=== PATIENT | female | born 1945 | race Caucasian/White ===

== ENCOUNTER 2022-12-18 17:05 | Emergency (ER) | payer MEDICARE, MEDICAID, SELFPAY ==
--- NOTE | ~2022-12-18 | CT_ITS ---
EXAMINATION: CT ABDOMEN AND PELVIS WITH CONTRAST CLINICAL INFORMATION: Epigastric pain with weight loss. COMPARISON: None. TECHNIQUE: Multidetector CT volumetric acquisition of the abdomen and pelvis was performed after the administration of 85 mL of intravenous Omnipaque 350. The data set was reformatted in the sagittal and coronal planes and reviewed on an independent workstation. This CT examination was performed using dose optimization techniques as appropriate, variously including the following: *Automated exposure control *Adjustment of mA and/or kV according to patient size (this includes techniques or standardized protocols for targeted exams where dose is matched to indication/reason for exam; i.e. extremities or head) *Use of iterative reconstruction technique DLP: 453.95 mGy-cm. FINDINGS: LOWER CHEST: Mild dependent atelectatic changes noted in the lung bases bilaterally. LIVER, GALLBLADDER, BILIARY TREE: Liver normal size and attenuation. No focal cystic or solid mass. Hepatic and portal veins patent. Gallbladder surgically absent with multiple rolando seen in the gallbladder fossa. Minimal central intrahepatic ductal prominence is seen. Common bile duct is normal in caliber, measuring 0.3 cm in maximal diameter.. PANCREAS: Normal. No ductal dilatation, mass, or surrounding stranding. SPLEEN: Normal size and appearance. Splenic vein patent. ADRENAL GLANDS AND KIDNEYS: Adrenal glands normal. Kidneys bilaterally symmetric in size and function. No focal mass, hydronephrosis, nephrolithiasis or perinephric stranding. URETERS AND BLADDER: Ureters decompressed and within normal limits. Bladder partially distended and within normal limits. PELVIC ORGANS: Unremarkable. GASTROINTESTINAL TRACT: Small hiatal hernia noted. Mild sigmoid and distal descending colonic diverticulosis with no evidence of acute diverticulitis. Mild diffuse submucosal hypodensity seen in the right colon, perhaps sequelae of previous colitis. No evidence of acute inflammation.. Small and large bowel loops decompressed. Appendix in right lower quadrant normal. ABDOMINAL WALL: There is a tiny fat-containing umbilical hernia. LYMPHOVASCULAR STRUCTURES: Abdominal aorta normal in caliber. No periaortic collections. No abdominal or pelvic adenopathy or free fluid collection. BONES: Diffuse osteopenia. Minimal vertebral spondylosis in the lower thoracic and in mid and lower lumbar spine. Mild degenerative disc disease at T11-T12, L3-L4 and L5-S1 with mild disc space narrowing and vacuum disc phenomenon and spurring seen. Mild facet arthropathy at the lumbosacral junction. CT/CT abdomen pelvis w IV con IMPRESSION: 1. No acute intra-abdominal or pelvic findings seen. 2. Mild colonic diverticulosis with no evidence of acute diverticulitis. 3. Status post cholecystectomy with minimal prominence of the central intrahepatic ducts. Common bile duct is normal in caliber. 4. Small hiatal hernia. 5. Tiny fat-containing umbilical hernia.
[2022-12-18 17:19] VITALS: BP 152/79; PULSE 74; RESP 18; TEMP 36.6; O2SAT 98; BMI 23.8
--- NOTE | 2022-12-18 17:21 | ED.GENADULT ---
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 This has not been associated with any fever, chills nor has been associated with vomiting, diarrhea, or constipation but patient does report some associated nausea. She denies any urinary pain or burning but does report frequency and she is status post cholecystectomy she states her last colonoscopy was in approximately 2011 <Corry Vanegas MD - Last Filed: 12/18/22 22:30> Related Data Home medications: Previous Rx's Medication Instructions Recorded cefdinir 300 mg capsule 300 mg PO BID 7 days #14 caps 12/18/22 omeprazole 40 mg capsule,delayed 40 mg PO DAILY #30 caps 12/18/22 release <COLLETTE García - Last Filed: 12/18/22 17:26> Allergies/adverse reactions: Allergies Allergy/AdvReac Type Severity Reaction Status Date / Time No Known Allergies Allergy Verified 12/18/22 17:23 <COLLETTE García - Last Filed: 12/18/22 17:26> Review of Systems Review of Systems: Pertinent positives and negatives as stated in HPI <Corry Vanegas MD - Last Filed: 12/18/22 22:30> PMFSH Past Medical History Source: nursing notes reviewed <Corry Vanegas MD - Last Filed: 12/18/22 22:30> Social History Social History: Social History Alcohol intake: never Smoked in Last 30 Days: No Use of substances other than those prescribed or required for medical reasons: No Advance Directives: No Advance Directives Information Provided: No <COLLETTE García - Last Filed: 12/18/22 17:26> Physical Exam ED Vital Signs: Vital Signs - 24 hr 12/18/22 17:19 12/18/22 19:57 Temperature 97.8 F 98.1 F Pulse Rate 74 80 Respiratory Rate 18 16 Blood Pressure 152/79 H 165/83 H Pulse Oximetry 98 98 Oxygen Delivery Method Room Air Room Air BMI result Body Mass Index 23.8 <COLLETTE García - Last Filed: 12/18/22 17:26> Vital Signs - 24 hr 12/18/22 17:19 12/18/22 19:57 Temperature 97.8 F 98.1 F Pulse Rate 74 80 Respiratory Rate 18 16 Blood Pressure 152/79 H 165/83 H Pulse Oximetry 98 98 Oxygen Delivery Method Room Air Room Air BMI result Body Mass Index 23.8 VITAL SIGNS: Reviewed. GENERAL: Well developed, well nourished, in no acute distress. HEAD: Normocephalic/atraumatic EYES: PERRLA, EOMI EARS: Ext canals without abnormality, TMs non-bulging and non-erythematous NOSE: Nares patent bilateral OROPHARYNX: no oral lesions noted, posterior pharynx clear and non-erythematous without noted tonsillar enlargement/erythema/exudates NECK: Supple, no adenopathy LUNGS: Normal breath sounds. No adventitious sounds or accessory muscle use. SpO2<98> CARDIOVASCULAR: Regular rate and rhythm without noted murmurs, no JVD or lower extremity edema. ABDOMEN: Soft, non-tender, non-distended with bowel sounds. MUSCULOSKELETAL: No tenderness, deformities, or effusions noted on gross inspection. EXTREMITIES: No cyanosis, clubbing or edema. SKIN: Inspection of the skin reveals no rashes NEUROLOGIC: Alert and oriented x 4. Strength and sensation to light touch were grossly intact x 4. <Corry Vanegas MD - Last Filed: 12/18/22 22:30> Course Course Course Narrative: RME - 77 yo female with history of gastritis presents to the ER for evaluation of poor PO intake for the last 6-8 weeks due to epigastric pain with eating. She has ongoing nausea and headaches. She has not been taking the medication for her gastritis. She feels weak. Family reports intermittent dizziness episodes and new unsteady gait. Family brought her here from [place] for evaluation. Plan: start w/ lab workup <COLLETTE García - Last Filed: 12/18/22 17:26> Medications Administered Discontinued Medications Generic Name Dose Route Start Last Admin Trade Name Freq PRN Reason Stop Dose Admin Sodium Chloride 500 mls @ 999 mls/hr 12/18/22 20:45 12/18/22 21:51 Ns IV 12/18/22 21:15 999 mls/hr .Q31M ASH Administration Sodium Chloride 500 mls @ 999 mls/hr 12/18/22 21:45 12/18/22 21:52 Ns IV 12/18/22 22:15 999 mls/hr .Q31M ASH Administration Iohexol 100 ml 12/18/22 21:32 12/18/22 21:33 Iohexol 350 Mg/Ml 100 Ml Infus..Btl IV 12/18/22 21:33 85 ml ONCE ONE Administration <COLLETTE García - Last Filed: 12/18/22 17:26> Medications Administered Discontinued Medications Generic Name Dose Route Start Last Admin Trade Name Freq PRN Reason Stop Dose Admin Sodium Chloride 500 mls @ 999 mls/hr 12/18/22 20:45 12/18/22 21:51 Ns IV 12/18/22 21:15 999 mls/hr .Q31M ASH Administration Sodium Chloride 500 mls @ 999 mls/hr 12/18/22 21:45 12/18/22 21:52 Ns IV 12/18/22 22:15 999 mls/hr .Q31M ASH Administration Iohexol 100 ml 12/18/22 21:32 12/18/22 21:33 Iohexol 350 Mg/Ml 100 Ml Infus..Btl IV 12/18/22 21:33 85 ml ONCE ONE Administration <Corry Vanegas MD - Last Filed: 12/18/22 22:30> Medical Decision Making Medical Decision Making MDM Narrative: 77-year-old female with history and clinical presentation is review of all investigations suggestive of possible gastritis and/or H pylori infection verses dyspepsia, patient otherwise appears to be in no acute distress and does not appear to be cachectic or dehydrated. The plan is to get imaging studies to rule out acute upper abdomen etiologies, if this is negative then will proceed with treatment for gastritis and instruct patient to follow-up with PCP for H pylori evaluation. Patient is hemodynamically stable and appears comfortable. Review of all investigations to include imaging studies and my assessment is that this patient at a minimum has pyelonephritis for which she will receive antibiotics. <Corry Vanegas MD - Last Filed: 12/18/22 22:30> Differential Diagnosis Please see the discussion above <Corry Vanegas MD - Last Filed: 12/18/22 22:30> Lab Data Please see the discussion above <Corry Vanegas MD - Last Filed: 12/18/22 22:30> Result Diagrams: 12/18/22 18:09 12/18/22 18:09 <COLLETTE García - Last Filed: 12/18/22 17:26> Labs: Lab Results 12/18/22 12/18/22 12/18/22 Range/Units 18:09 18:09 18:09 WBC 4.7 L (4.8-10.8) X10*3/uL RBC 4.84 (4.20-5.50) X10*6/uL Hgb 14.9 (12.0-16.0) g/dl Hct 43.1 (37.0-47.0) % MCV 89.0 (80.0-98.0) fL MCH 30.8 (27.0-33.0) pg MCHC 34.6 (31.0-35.0) g/dl RDW 13.3 (11.0-16.0) % Plt Count 330 (160-400) X10*3/uL MPV 10.8 (9.4-12.3) fL Immature Gran % (Auto) 0.0 (0.0-0.4) % Neut % (Auto) 45.3 (45-73) % Lymph % (Auto) 42.1 H (20-40) % Henry % (Auto) 10.9 (2-11) % Eos % (Auto) 0.6 (0-4) % Baso % (Auto) 1.1 (0-2) % Lymph # (Auto) 2.0 (1.2-4.9) X10*3/uL Henry # (Auto) 0.5 (0.1-1.2) X10*3/uL Eos # (Auto) 0.0 (0.0-0.4) X10*3/uL Baso # (Auto) 0.1 (0.0-0.2) X10*3/uL Abs Immat Gran (auto) 0.00 (0.00-0.03) X10*3/uL Absolute Neuts (auto) 2.1 (2.0-8.3) x10*3/uL Absolute Nucleated RBC 0.000 (0.0-0.012) X10*3/uL Nucleated RBC % (auto) 0.0 (0.0-0.2) /100WBC Sodium 139 (135-145) mmol/L Potassium 4.6 (3.3-5.1) mmol/L Chloride 104 (96-108) mmol/L Carbon Dioxide 28 (22-29) mmol/L Anion Gap 12 (12-20) BUN 8 L (9-16) mg/dL Creatinine 0.81 (0.5-1.4) mg/dL Estim Creat Clear Calc 47.4 Estimated GFR > 60 Random Glucose 106 (60-115) mg/dL Calcium 9.7 (8.4-10.2) mg/dL Magnesium 2.2 (1.6-2.6) mg/dL Total Bilirubin 0.7 (0.0-1.0) mg/dL Direct Bilirubin 0.2 (0.0-0.5) mg/dL AST 17 (5-31) U/L ALT 11 (0-31) U/L Alkaline Phosphatase 62 (39-117) U/L Total Protein 7.0 (6.5-8.0) g/dL Albumin 4.2 (3.5-5.0) g/dL Prealbumin 25.0 (20-40) mg/dL Lipase 13 (8-78) U/L TSH 6.76 H (0.32-4.0) uIU/mL Urine Color Urine Appearance Urine pH (5.0-9.0) Ur Specific [place] (1.005-1.025) Urine Protein (Neg-Trace) mg/dL Urine Glucose (UA) (Negative) mg/dL Urine Ketones (Negative) mg/dL Urine Blood (Negative) Urine Nitrite (Negative) Ur Leukocyte Esterase (Negative) Urine RBC (0-2) /HPF Urine WBC (0-5) /HPF Ur Squamous Epith Cells (0-2) /HPF Urine Bacteria (None Seen) Hyaline Casts (0-2) /LPF COVID-19 (JR) Negative (Negative) COVID-19 Clin Com See Note 12/18/22 Range/Units 21:56 WBC (4.8-10.8) X10*3/uL RBC (4.20-5.50) X10*6/uL Hgb (12.0-16.0) g/dl Hct (37.0-47.0) % MCV (80.0-98.0) fL MCH (27.0-33.0) pg MCHC (31.0-35.0) g/dl RDW (11.0-16.0) % Plt Count (160-400) X10*3/uL MPV (9.4-12.3) fL Immature Gran % (Auto) (0.0-0.4) % Neut % (Auto) (45-73) % Lymph % (Auto) (20-40) % Henry % (Auto) (2-11) % Eos % (Auto) (0-4) % Baso % (Auto) (0-2) % Lymph # (Auto) (1.2-4.9) X10*3/uL Henry # (Auto) (0.1-1.2) X10*3/uL Eos # (Auto) (0.0-0.4) X10*3/uL Baso # (Auto) (0.0-0.2) X10*3/uL Abs Immat Gran (auto) (0.00-0.03) X10*3/uL Absolute Neuts (auto) (2.0-8.3) x10*3/uL Absolute Nucleated RBC (0.0-0.012) X10*3/uL Nucleated RBC % (auto) (0.0-0.2) /100WBC Sodium (135-145) mmol/L Potassium (3.3-5.1) mmol/L Chloride (96-108) mmol/L Carbon Dioxide (22-29) mmol/L Anion Gap (12-20) BUN (9-16) mg/dL Creatinine (0.5-1.4) mg/dL Estim Creat Clear Calc Estimated GFR Random Glucose (60-115) mg/dL Calcium (8.4-10.2) mg/dL Magnesium (1.6-2.6) mg/dL Total Bilirubin (0.0-1.0) mg/dL Direct Bilirubin (0.0-0.5) mg/dL AST (5-31) U/L ALT (0-31) U/L Alkaline Phosphatase (39-117) U/L Total Protein (6.5-8.0) g/dL Albumin (3.5-5.0) g/dL Prealbumin (20-40) mg/dL Lipase (8-78) U/L TSH (0.32-4.0) uIU/mL Urine Color Yellow Urine Appearance Clear Urine pH 6.0 (5.0-9.0) Ur Specific [place] 1.010 (1.005-1.025) Urine Protein Negative (Neg-Trace) mg/dL Urine Glucose (UA) Negative (Negative) mg/dL Urine Ketones 15 (Negative) mg/dL Urine Blood Negative (Negative) Urine Nitrite Negative (Negative) Ur Leukocyte Esterase Moderate (2+) H (Negative) Urine RBC 0-2 (0-2) /HPF Urine WBC 11-20 H (0-5) /HPF Ur Squamous Epith Cells 0-2 (0-2) /HPF Urine Bacteria None Seen (None Seen) Hyaline Casts 0-2 (0-2) /LPF COVID-19 (JR) (Negative) COVID-19 Clin Com <COLLETTE García - Last Filed: 12/18/22 17:26> Lab Results 12/18/22 12/18/22 12/18/22 Range/Units 18:09 18:09 18:09 WBC 4.7 L (4.8-10.8) X10*3/uL RBC 4.84 (4.20-5.50) X10*6/uL Hgb 14.9 (12.0-16.0) g/dl Hct 43.1 (37.0-47.0) % MCV 89.0 (80.0-98.0) fL MCH 30.8 (27.0-33.0) pg MCHC 34.6 (31.0-35.0) g/dl RDW 13.3 (11.0-16.0) % Plt Count 330 (160-400) X10*3/uL MPV 10.8 (9.4-12.3) fL Immature Gran % (Auto) 0.0 (0.0-0.4) % Neut % (Auto) 45.3 (45-73) % Lymph % (Auto) 42.1 H (20-40) % Henry % (Auto) 10.9 (2-11) % Eos % (Auto) 0.6 (0-4) % Baso % (Auto) 1.1 (0-2) % Lymph # (Auto) 2.0 (1.2-4.9) X10*3/uL Henry # (Auto) 0.5 (0.1-1.2) X10*3/uL Eos # (Auto) 0.0 (0.0-0.4) X10*3/uL Baso # (Auto) 0.1 (0.0-0.2) X10*3/uL Abs Immat Gran (auto) 0.00 (0.00-0.03) X10*3/uL Absolute Neuts (auto) 2.1 (2.0-8.3) x10*3/uL Absolute Nucleated RBC 0.000 (0.0-0.012) X10*3/uL Nucleated RBC % (auto) 0.0 (0.0-0.2) /100WBC Sodium 139 (135-145) mmol/L Potassium 4.6 (3.3-5.1) mmol/L Chloride 104 (96-108) mmol/L Carbon Dioxide 28 (22-29) mmol/L Anion Gap 12 (12-20) BUN 8 L (9-16) mg/dL Creatinine 0.81 (0.5-1.4) mg/dL Estim Creat Clear Calc 47.4 Estimated GFR > 60 Random Glucose 106 (60-115) mg/dL Calcium 9.7 (8.4-10.2) mg/dL Magnesium 2.2 (1.6-2.6) mg/dL Total Bilirubin 0.7 (0.0-1.0) mg/dL Direct Bilirubin 0.2 (0.0-0.5) mg/dL AST 17 (5-31) U/L ALT 11 (0-31) U/L Alkaline Phosphatase 62 (39-117) U/L Total Protein 7.0 (6.5-8.0) g/dL Albumin 4.2 (3.5-5.0) g/dL Prealbumin 25.0 (20-40) mg/dL Lipase 13 (8-78) U/L TSH 6.76 H (0.32-4.0) uIU/mL Urine Color Urine Appearance Urine pH (5.0-9.0) Ur Specific [place] (1.005-1.025) Urine Protein (Neg-Trace) mg/dL Urine Glucose (UA) (Negative) mg/dL Urine Ketones (Negative) mg/dL Urine Blood (Negative) Urine Nitrite (Negative) Ur Leukocyte Esterase (Negative) Urine RBC (0-2) /HPF Urine WBC (0-5) /HPF Ur Squamous Epith Cells (0-2) /HPF Urine Bacteria (None Seen) Hyaline Casts (0-2) /LPF COVID-19 (JR) Negative (Negative) COVID-19 Clin Com See Note 12/18/22 Range/Units 21:56 WBC (4.8-10.8) X10*3/uL RBC (4.20-5.50) X10*6/uL Hgb (12.0-16.0) g/dl Hct (37.0-47.0) % MCV (80.0-98.0) fL MCH (27.0-33.0) pg MCHC (31.0-35.0) g/dl RDW (11.0-16.0) % Plt Count (160-400) X10*3/uL MPV (9.4-12.3) fL Immature Gran % (Auto) (0.0-0.4) % Neut % (Auto) (45-73) % Lymph % (Auto) (20-40) % Henry % (Auto) (2-11) % Eos % (Auto) (0-4) % Baso % (Auto) (0-2) % Lymph # (Auto) (1.2-4.9) X10*3/uL Henry # (Auto) (0.1-1.2) X10*3/uL Eos # (Auto) (0.0-0.4) X10*3/uL Baso # (Auto) (0.0-0.2) X10*3/uL Abs Immat Gran (auto) (0.00-0.03) X10*3/uL Absolute Neuts (auto) (2.0-8.3) x10*3/uL Absolute Nucleated RBC (0.0-0.012) X10*3/uL Nucleated RBC % (auto) (0.0-0.2) /100WBC Sodium (135-145) mmol/L Potassium (3.3-5.1) mmol/L Chloride (96-108) mmol/L Carbon Dioxide (22-29) mmol/L Anion Gap (12-20) BUN (9-16) mg/dL Creatinine (0.5-1.4) mg/dL Estim Creat Clear Calc Estimated GFR Random Glucose (60-115) mg/dL Calcium (8.4-10.2) mg/dL Magnesium (1.6-2.6) mg/dL Total Bilirubin (0.0-1.0) mg/dL Direct Bilirubin (0.0-0.5) mg/dL AST (5-31) U/L ALT (0-31) U/L Alkaline Phosphatase (39-117) U/L Total Protein (6.5-8.0) g/dL Albumin (3.5-5.0) g/dL Prealbumin (20-40) mg/dL Lipase (8-78) U/L TSH (0.32-4.0) uIU/mL Urine Color Yellow Urine Appearance Clear Urine pH 6.0 (5.0-9.0) Ur Specific [place] 1.010 (1.005-1.025) Urine Protein Negative (Neg-Trace) mg/dL Urine Glucose (UA) Negative (Negative) mg/dL Urine Ketones 15 (Negative) mg/dL Urine Blood Negative (Negative) Urine Nitrite Negative (Negative) Ur Leukocyte Esterase Moderate (2+) H (Negative) Urine RBC 0-2 (0-2) /HPF Urine WBC 11-20 H (0-5) /HPF Ur Squamous Epith Cells 0-2 (0-2) /HPF Urine Bacteria None Seen (None Seen) Hyaline Casts 0-2 (0-2) /LPF COVID-19 (JR) (Negative) COVID-19 Clin Com <Corry Vanegas MD - Last Filed: 12/18/22 22:30> Independent Interpretation I performed an independent interpretation of an: EKG <Corry Vanegas MD - Last Filed: 12/18/22 22:30> Interpretation: Normal sinus rhythm, HR-62, no STEMI, OH/QRS/QTC is within normal limits. <Corry Vanegas MD - Last Filed: 12/18/22 22:30> Radiology Impression Radiologist Impression: My interpretation is in agreement with radiology's impression of the imaging studies. <Corry Vanegas MD - Last Filed: 12/18/22 22:30> External Record Review External record reviewed: Outpatient record and Prior outpatient labs <Corry Vanegas MD - Last Filed: 12/18/22 22:30> Discharge Plan Discharge Clinical Impression: Gastritis, Pyelonephritis <COLLETTE García - Last Filed: 12/18/22 17:26> Patient Disposition: Home, Self-Care <COLLETTE García - Last Filed: 12/18/22 17:26> Instructions: Gastritis (ED), Diet for Stomach Ulcers and Gastritis (ED), Kidney Infection (ED) <COLLETTE García - Last Filed: 12/18/22 17:26> Additional Instructions: 1. Reanude los medicamentos en el hogar. 2. Complete todo el ciclo de antibi?ticos seg?n lo indicado. 3. Comenz? a castro un medicamento para controlar el ?cido. 4. Ann un seguimiento con kelly proveedor de atenci?n primaria en los pr?ximos 2 a 3 d?as. Regrese a la mena de emergencias si los s?ntomas empeoran. 1. Resume home medications. 2. Complete the entire course of antibiotics as ordered. 3. You have been started on an acid control medication. 4. Please follow-up with your primary care provider in the next 2-3 days. Return to the ER for any worsening symptoms. <COLLETTE García - Last Filed: 12/18/22 17:26> Prescriptions: New omeprazole 40 mg capsule,delayed release(DR/EC) 40 mg PO DAILY Qty: 30 0RF cefdinir 300 mg capsule 300 mg PO BID 7 Days Qty: 14 0RF <COLLETTE García - Last Filed: 12/18/22 17:26> Print Language: Upper Sorbian <COLLETTE García - Last Filed: 12/18/22 17:26>
--- NOTE | 2022-12-18 17:24 | ECG_ITS ---
Test Reason : abd pain Blood Pressure : / mmHG Vent. Rate : 062 BPM Atrial Rate : 062 BPM P-R Int : 176 ms QRS Dur : 070 ms QT Int : 380 ms P-R-T Axes : 074 018 027 degrees QTc Int : 385 ms Normal sinus rhythm Minimal voltage criteria for LVH, may be normal variant ( Sokolow-Gonzalez ) Septal infarct , age undetermined Abnormal ECG No previous ECGs available Referred By: Nimco Aguilar Electronically Signed By:Aguilar Wilkins
[2022-12-18 18:15] LABS: MANUAL DIFF FLAG NO
[2022-12-18 18:28] LABS: COVID-19 Test Negative (Negative); IDNOW Serial# BCCEAD1C
[2022-12-18 18:40] LABS: Alanine Aminotransferase 11 U/L (0-31); Albumin Level 4.2 g/dL (3.5-5.0); Alkaline Phosphatase 62 U/L (39-117); Anion Gap 12 (12-20); Aspartate Amino Transferase 17 U/L (5-31); Bilirubin Direct 0.2 mg/dL (0.0-0.5); Bilirubin Total 0.7 mg/dL (0.0-1.0); Blood Urea Nitrogen 8 mg/dL (9-16); Calcium 9.7 mg/dL (8.4-10.2); Carbon Dioxide 28 mmol/L (22-29); Chloride 104 mmol/L (96-108); Creatinine Clr Calc Pharmacy 47.4; Estimated Glomerular Filt Rate > 60; Glucose Random 106 mg/dL (60-115); Lipase 13 U/L (8-78); Magnesium 2.2 mg/dL (1.6-2.6); Potassium 4.6 mmol/L (3.3-5.1); Sodium 139 mmol/L (135-145)
[2022-12-18 18:41] LABS: Basophils Absolute Auto 0.1 X10*3/uL (0.0-0.2); Basophils Percent Auto 1.1 % (0-2); Eosinophils Percent Auto 0.6 % (0-4); Hematocrit 43.1 % (37.0-47.0); Hemoglobin 14.9 g/dl (12.0-16.0); Lymphocytes Percent Auto 42.1 % (20-40); Mean Corpuscular HGB Conc 34.6 g/dl (31.0-35.0); Mean Corpuscular Hemoglobin 30.8 pg (27.0-33.0); Mean Platelet Volume 10.8 fL (9.4-12.3); Monocytes Absolute Auto 0.5 X10*3/uL (0.1-1.2); Monocytes Percent Auto 10.9 % (2-11); Neutrophils Absolute Auto 2.1 x10*3/uL (2.0-8.3); Neutrophils Percent Auto 45.3 % (45-73); Platelet Count 330 X10*3/uL (160-400); Red Blood Count 4.84 X10*6/uL (4.20-5.50); Red Cell Distribution Width 13.3 % (11.0-16.0); White Blood Count 4.7 X10*3/uL (4.8-10.8)
[2022-12-18 19:57] VITALS: BP 165/83; PULSE 80; RESP 16; TEMP 36.7; O2SAT 98
[2022-12-18 21:30] LABS: Thyroid Stimulating Hormone 6.76 uIU/mL (0.32-4.0)
[2022-12-18] MEDS: iohexoL 350 MG/ML 100 ML INFUS..BTL IV (21:33)
[2022-12-18] MEDS: 0.9 % Sodium Chloride 500 ML 999 ML IV ×2 (21:51→21:52)
[2022-12-18 22:03] LABS: Appearance Urine Clear; Color Urine Yellow; Glucose Urine UA Negative (Negative); Leukocyte Esterase Urine Moderate (2+) (Negative); Nitrite Urine Negative (Negative); UMIC TRIGGER UACC YES; Urine Blood Negative (Negative); Urine Ketones 15 mg/dL (Negative); Urine Protein Negative (Neg-Trace)
[2022-12-18 22:08] LABS: Bacteria Urine None Seen (None Seen); Hyaline Casts Urine 0-2 /LPF (0-2); RBC Urine 0-2 /HPF (0-2); Squamous Epithelial Cell Urine 0-2 /HPF (0-2); UACC Culture Trigger YES
[2022-12-18] MEDS: Sucralfate Oral Suspension 1 GM/10 ML ORAL.SUSP PO (22:44)
[2022-12-18] MEDS: Nitrofurantoin Monohyd/M-Cryst 100 MG CAPSULE PO (22:44)
--- NOTE | 2022-12-18 23:02 | PC.NURSE ---
Upon d/c pt. requested medications to be called into [facility] instead of [facility]. Updated in pt. chart and requested MD to make the change.
== END 2022-12-18 23:04 | disposition home or self-care (01) ==
PROVIDERS: Physician Assistant; Emergency Provider Student in an Organized Health Care Education/Training Program
DX: K29.70 Gastritis, unspecified, without bleeding (principal); N12 Tubulo-interstitial nephritis, not specified as acute or chronic; R94.31 Abnormal electrocardiogram [ECG] [EKG]; Z20.822 Contact with and (suspected) exposure to COVID-19; Z20.828 Contact with and (suspected) exposure to other viral communicable diseases; Z79.899 Other long term (current) drug therapy
CPT/HCPCS: 74177; 80048; 80076; 81001; 83690; 83735; 84134; 84443; 85025; 87086; 87147; 87635; 93005; 96360; 99284; 99285; Q9967

== ENCOUNTER 2023-03-13 06:56 | Outpatient (REF) | payer MEDICARE, MEDICAID, SELFPAY ==
[2023-03-13 11:27] LABS: MANUAL DIFF FLAG NO
[2023-03-13 11:34] LABS: Basophils Absolute Auto 0.1 X10*3/uL (0.0-0.2); Basophils Percent Auto 1.9 % (0-2); Eosinophils Absolute Auto 0.1 X10*3/uL (0.0-0.4); Eosinophils Percent Auto 2.1 % (0-4); Hematocrit 41.1 % (37.0-47.0); Hemoglobin 13.7 g/dl (12.0-16.0); Imm Gran Abs Auto 0.01 X10*3/uL (0.00-0.03); Imm Gran Pct Auto 0.3 % (0.0-0.4); Lymphocytes Absolute Auto 1.7 X10*3/uL (1.2-4.9); Lymphocytes Percent Auto 44.8 % (20-40); Mean Corpuscular HGB Conc 33.3 g/dl (31.0-35.0); Mean Corpuscular Hemoglobin 30.8 pg (27.0-33.0); Mean Corpuscular Volume 92.4 fL (80.0-98.0); Mean Platelet Volume 11.2 fL (9.4-12.3); Monocytes Absolute Auto 0.4 X10*3/uL (0.1-1.2); Monocytes Percent Auto 10.9 % (2-11); Neutrophils Absolute Auto 1.5 x10*3/uL (2.0-8.3); Platelet Count 315 X10*3/uL (160-400); Red Blood Count 4.45 X10*6/uL (4.20-5.50); Red Cell Distribution Width 13.9 % (11.0-16.0); White Blood Count 3.8 X10*3/uL (4.8-10.8)
[2023-03-13 11:42] LABS: Estimated Average Glucose 103 mg/dL; Hemoglobin A1c % 5.2 %
[2023-03-13 12:07] LABS: Alanine Aminotransferase 12 U/L (0-31); Albumin Level 3.9 g/dL (3.5-5.0); Alkaline Phosphatase 69 U/L (39-117); Anion Gap 12 (12-20); Aspartate Amino Transferase 16 U/L (5-31); Bilirubin Total 0.6 mg/dL (0.0-1.0); Blood Urea Nitrogen 13 mg/dL (9-16); Calcium 9.2 mg/dL (8.4-10.2); Carbon Dioxide 26 mmol/L (22-29); Chloride 108 mmol/L (96-108); Cholesterol 185 mg/dL; Estimated Glomerular Filt Rate > 60; Glucose Fasting 88 mg/dL (60-99); HDL Cholesterol 58 mg/dL; LDL Cholesterol Calculated 117 mg/dl; Sodium 142 mmol/L (135-145); Total Protein 6.9 g/dL (6.5-8.0); Triglycerides 53 mg/dL
[2023-03-13 12:30] LABS: TSH reflex Free T4 0.51 uIU/mL (0.32-4.0)
== END 2023-03-13 06:57 | disposition home or self-care (01) ==
LOC: HO.HMGCLDS 06:56
PROVIDERS: PCP Nurse Practitioner Family; Visit Provider Nurse Practitioner Family
DX: Z13.220 Encounter for screening for lipoid disorders (principal); Z13.0 Encounter for screening for diseases of the blood and blood-forming organs and certain disorders involving the immune mechanism; Z13.1 Encounter for screening for diabetes mellitus; E03.9 Hypothyroidism, unspecified
CPT/HCPCS: 36415; 80053; 80061; 83036; 84443; 85025